=== PATIENT | female | born 1995 | race Caucasian/White ===

== ENCOUNTER 2016-09-18 21:32 | Emergency (ER) | payer SELFPAY ==
[2016-09-18 23:25] VITALS: BP 110/72
== END 2016-09-18 23:25 | disposition home or self-care (01) ==
LOC: ED 21:32
DX: S93.402A Sprain of unspecified ligament of left ankle, initial encounter (principal); W17.89XA Other fall from one level to another, initial encounter; Y93.89 Activity, other specified; Y99.8 Other external cause status; Y92.89 Other specified places as the place of occurrence of the external cause